=== PATIENT | female | born 1955 | race Caucasian/White ===

== ENCOUNTER → 2016-11-28 | Outpatient (REF) | payer OTHER ==
[2016-11-28 11:26] LABS: MEAN CORPUSCULAR HEMOGLOBIN 31.5 pg (27.0-33.0); MEAN CORPUSCULAR HGB CONC 33.3 g/dl (32.0-36.5); MEAN CORPUSCULAR VOLUME 94.7 fl (80.0-96.0); RED CELL DISTRIBUTION WIDTH 12.3 % (11.5-14.5)
[2016-11-28 11:27] LABS: ALBUMIN 4.3 GM/DL (3.2-5.2); ALBUMIN/GLOBULIN RATIO 1.65 (1.00-1.93); ALKALINE PHOSPHATASE 76 U/L (45-117); ALT/SGPT 19 U/L (12-78); ANION GAP 7 MEQ/L (8-16); AST/SGOT 15 U/L (15-37); BILIRUBIN,TOTAL 0.7 MG/DL (0.2-1.0); BLOOD UREA NITROGEN 18 MG/DL (7-18); CALCIUM LEVEL 9.5 MG/DL (8.8-10.2); CARBON DIOXIDE LEVEL 29 MEQ/L (21-32); CHLORIDE LEVEL 107 MEQ/L (98-107); CHOLESTEROL LEVEL 188 MG/DL (<200); GLOMERULAR FILTRATION RATE > 60.0 (>45); GLUCOSE, FASTING 101 MG/DL (80-110); POTASSIUM SERUM 4.5 MEQ/L (3.5-5.1); SODIUM LEVEL 143 MEQ/L (136-145); TOTAL PROTEIN 6.9 GM/DL (6.4-8.2); TRIGLYCERIDES LEVEL 55 MG/DL (<150)
== END ==
LOC: M SFHCPLAZ 09:15
PROVIDERS: ATTEND Internal Medicine
DX: Z00.00 Encounter for general adult medical examination without abnormal findings (principal); D68.51 Activated protein C resistance; D13.4 Benign neoplasm of liver

== ENCOUNTER → 2016-12-06 | Outpatient (CLI) | payer OTHER ==
--- NOTE | 2016-12-06 09:32 | REP ---
Right upper quadrant sonography: History: Benign hepatic lesion. Compared to CT study abdomen October 08, 2011. Sonographic findings: The gallbladder is surgically absent. The liver is not enlarged. No pancreatic abnormality is observed. High in the dome of the liver, today's sonography shows a 0.6 x 0.5 x 0.6 cm hyperechoic nodule consistent with a hemangioma. This is visible in retrospect on the 2010 prior study as a low-density area and is unchanged in size in any event. There is a very subtle isoechoic area in the medial aspect of the left lobe posteriorly measuring 2.8 x 3.7 x 3.1 cm. This is felt to correspond with the hypervascular mass-like lesions seen adjacent to the falciform ligament in the left lobe of the liver on CT study from 2010. It is difficult to exactly compare dimensions from one modality to the other. However, this would appear to have enlarged slightly since the 2010 study. It is not very conspicuous by ultrasound and repeat CT scanning with contrast would likely give a more accurate depiction of any change. No other liver mass lesion is seen. There is no evidence of ascites or right renal abnormality. The right kidney measures 10.8 x 6.2 x 4.8 cm. Impression: Subtle 3.7 x 3.1 x 2.8 cm isoechoic area in the medial aspect of the left lobe not very well displayed by ultrasound. This appears to have enlarged slightly since the prior CT study in 2010. There is also a 0.6 cm presumed hemangioma in the right lobe of the liver also stable since 2010 in size. Signed by Dequan Walker MD 12/06/2016 12:23 P
== END ==
LOC: M RAD 08:12
PROVIDERS: ATTEND Internal Medicine
DX: D13.4 Benign neoplasm of liver (principal)

== ENCOUNTER → 2017-05-21 | Outpatient (CLI) | payer OTHER ==
--- NOTE | 2017-05-21 10:04 | REPMRS ---
Patient History The patient states she had a clinical breast exam in 04/2017. Patient is postmenopausal. Family history of breast cancer in maternal grandmother and colorectal cancer in paternal uncle. Digital Woman Screen Mammo: May 21, 2017 - Exam #: [id number] Bilateral CC and MLO view(s) were taken. Technologist: Silva Tamez, Technologist Prior study comparison: May 17, 2016, digital woman screen mammo performed at [facility] to [facility]. May 16, 2015, digital woman screen mammo performed at [facility] to [facility]. FINDINGS: There are scattered fibroglandular densities. There has been no change in the appearance of the mammogram from the prior studies. There is a mild amount of residual fibroglandular tissue which is fairly symmetric. There is no interval development of dominant mass, architectural distortion, or clustered microcalcification suggestive of malignancy. ASSESSMENT: BI-RADS/ACR category 1 mammogram. Negative. Recommendation Routine screening mammogram in 1 year (for women over age 40). This mammogram was interpreted with the aid of an FDA-approved computer-aided dectection system. Electronically Signed By: Kali Roberts MD 05/21/17 [id number]
== END ==
LOC: M WHC 08:41
PROVIDERS: ATTEND Nurse Practitioner Women's Health
DX: Z12.31 Encounter for screening mammogram for malignant neoplasm of breast (principal); Z78.0 Asymptomatic menopausal state; Z80.3 Family history of malignant neoplasm of breast

== ENCOUNTER → 2017-05-21 | Outpatient (REF) | payer OTHER | LOC: M SFHCWAGY 09:01 | PROVIDERS: ATTEND Nurse Practitioner Women's Health | DX: Z12.4 Encounter for screening for malignant neoplasm of cervix (principal) ==

== ENCOUNTER → 2017-11-28 | Outpatient (REF) | payer OTHER ==
[2017-11-28 15:59] LABS: HEMATOCRIT 42.6 % (36.0-47.0); HEMOGLOBIN 13.7 g/dl (12.0-16.0); MEAN CORPUSCULAR HEMOGLOBIN 31.5 pg (27.0-33.0); MEAN CORPUSCULAR HGB CONC 32.2 g/dl (32.0-36.5); MEAN CORPUSCULAR VOLUME 97.9 fl (80.0-96.0); PLATELET COUNT, AUTOMATED 268 10^3/uL (150-450); RED BLOOD COUNT 4.35 10^6/uL (4.00-5.40); RED CELL DISTRIBUTION WIDTH 12.5 % (11.5-14.5); WHITE BLOOD COUNT 4.3 10^3/uL (4.0-10.0)
[2017-11-28 16:03] LABS: ALBUMIN 4.1 GM/DL (3.2-5.2); ALBUMIN/GLOBULIN RATIO 1.46 (1.00-1.93); ALKALINE PHOSPHATASE 87 U/L (45-117); ALT/SGPT 17 U/L (12-78); ANION GAP 4 MEQ/L (8-16); AST/SGOT 14 U/L (7-37); BILIRUBIN,TOTAL 0.4 MG/DL (0.2-1.0); BLOOD UREA NITROGEN 18 MG/DL (7-18); CALCIUM LEVEL 8.9 MG/DL (8.8-10.2); CARBON DIOXIDE LEVEL 29 MEQ/L (21-32); CHLORIDE LEVEL 107 MEQ/L (98-107); CREATININE FOR GFR 0.76 MG/DL (0.55-1.30); GLOMERULAR FILTRATION RATE > 60.0 (>45); GLUCOSE, FASTING 96 MG/DL (70-100); POTASSIUM SERUM 4.7 MEQ/L (3.5-5.1); SODIUM LEVEL 140 MEQ/L (136-145); TOTAL PROTEIN 6.9 GM/DL (6.4-8.2)
== END ==
LOC: M LABDRAW1 10:46
DX: Z00.00 Encounter for general adult medical examination without abnormal findings (principal); D13.4 Benign neoplasm of liver

== ENCOUNTER → 2018-05-22 | Outpatient (CLI) | payer BC | LOC: M WHC 08:38 | DX: Z12.31 Encounter for screening mammogram for malignant neoplasm of breast (principal) | CPT/HCPCS: G0123 ==

== ENCOUNTER → 2018-05-22 | Outpatient (REF) | payer BC | LOC: M SFHCWAGY 09:06 | DX: Z12.4 Encounter for screening for malignant neoplasm of cervix (principal) ==

== ENCOUNTER → 2019-05-25 | Outpatient (CLI) | payer MEDICARE ==
--- NOTE | 2019-05-25 12:40 | REP ---
BILATERAL SCREENING DIGITAL MAMMOGRAM WITH 3D TOMOSYNTHESIS: There are no palpable abnormalities or other breast complaints. The the patient states she had a clinical breast examination April/2019. The the patient states she performs self-breast examinations 12 times per year. The Tyrer-Cuzick Score is: 11.0% . Comparison is 01/19/2014. There are scattered areas of fibroglandular density. There is no dominant mass, micro calcific cluster or architectural distortion that would indicate malignancy. There are no additional findings on 3D tomosynthesiss. There is no change from the prior study. Impression: BIRADS/ACR category 1 mammogram. Negative. Recommendation: Routine annual screening mammography. This mammogram was interpreted with the aid of a FDA approved computer-aided detection system. A. Negative mammogram reports should not delay biopsy if a dominant or clinically suspicious mass is present. B. Not all breast cancers are identified by mammography or tomosynthesis. C. Adenosis and dense breasts may obscure an underlying neoplasm. Patient letter M1. Electronically Signed by Kali Eckert MD 05/25/2019 12:31 P
== END ==
LOC: M WHC 11:05
PROVIDERS: ATTEND Nurse Practitioner Women's Health
DX: Z12.31 Encounter for screening mammogram for malignant neoplasm of breast (principal); Z80.3 Family history of malignant neoplasm of breast

== ENCOUNTER → 2020-05-26 | Outpatient (CLI) | payer MEDICARE ==
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
--- NOTE | 2020-06-28 12:41 | DEXA ---
AP SPINE L2 - L4 1.143 -0.4 1.2 LT FEMUR TOTAL 1.011 0.0 1.3 LT NECK 1.045 0.0 1.6 RT FEMUR TOTAL 1.953 -0.4 0.8 RT NECK 1.949 -0.6 0.9 TOTAL BODY TOTAL OTHER COMMENTS: Normal Bone Densitometry of the spine and hips. The density of the spine has decreased 7.4% since the initial exam on 10/08/2008. The decreased 4.3% since the most recent exam on 11/10/2012. The density of the left hip has decreased 9.0% since the initial exam on 10/08/2008. The density of the left hip has decreased 5.2% since the most recent exam on 11/10/2012. The density of the right hip has decreased 9.8% since the initial exam on 10/08/2008. The density of the right hip has decreased 3.2% since the most recent exam on 11/10/2012. FOLLOW-UP: Recommendation for the next bone density exam: 5 years. [place]
== END ==
LOC: M WHC 09:45
PROVIDERS: ATTEND Nurse Practitioner Women's Health
DX: Z12.31 Encounter for screening mammogram for malignant neoplasm of breast (principal); Z78.0 Asymptomatic menopausal state

== ENCOUNTER → 2021-07-11 | Outpatient (CLI) | payer MEDICARE ==
--- NOTE | 2021-07-11 12:37 | REPMRS ---
Patient History The patient states she had a clinical breast exam in June 2021. Family history of breast cancer in maternal grandmother, colorectal cancer in paternal uncle, breast cancer at age 83 in maternal aunt, breast cancer at age 48 in maternal cousin. Patient states no breast complaints today. Patient has signed MRS History Sheet. Digital Woman Screen Mammo: July 11, 2021 - Exam #: [id number] Bilateral CC and MLO view(s) were taken. Technologist: Delia Hightower, Technologist Prior study comparison: May 26, 2020, bilateral digital woman screen mammo performed at [facility]. May 25, 2019, bilateral digital woman screen mammo performed at [facility]. FINDINGS: There are scattered fibroglandular densities. Screening. Digital screening (2D) mammography was performed bilaterally in the CC and MLO projections. Additionally, breast tomosynthesis (3D mammography) was performed bilaterally in the CC and MLO projections. Todays exam was compared to the prior exam/exams. By history, the patient has no complaints of a palpable breast abnormality or other significant breast complaints. The breasts are unchanged in size and shape. There are no burak-soft tissue densities or spiculated masses. There is no internal architectural distortion. Once again, stable benign appearing calcifications are seen.There are no suspicious burak-calcific clusters. Skin thickening or nipple retraction is not present. IMPRESSION: BI-RADS Category 2- Benign Findings. There is no evidence of malignant alteration of the breasts. Followup examination recommended in one year. The Volpara volumetric breast density category is B, there are scattered areas of fibroglandular densities. This mammogram was read with the assistance of [facility],an FDA approved computer aided detection system for mammography. The lifetime Tyrer-Cuzick score is 9.9 % Negative x-ray reports should not delay surgical consultation if a dominant or clinically suspicious mass is present. Not all breast cancers can be identified by mammography. Therefore, we recommend that you continue to perform regular breast self-examination and physical examination and then promptly contact your physician of any concerns or changes. Adenosis and dense breasts may obscure an underlying neoplasm. Assessment: BI-RADS/ACR category 2 mammogram. Benign Findings. Recommendation Routine screening mammogram of both breasts in 1 year. Electronically Signed By: Atif Robles, 07/11/21 [id number]
== END ==
LOC: M WHC 11:12
PROVIDERS: ATTEND Nurse Practitioner Women's Health
DX: Z01.419 Encounter for gynecological examination (general) (routine) without abnormal findings (principal); Z12.31 Encounter for screening mammogram for malignant neoplasm of breast; Z80.3 Family history of malignant neoplasm of breast

== ENCOUNTER → 2022-08-31 | Outpatient (CLI) | payer MEDICARE | LOC: M WHC 11:11 | PROVIDERS: ATTEND Nurse Practitioner Family | DX: Z12.31 Encounter for screening mammogram for malignant neoplasm of breast (principal) ==

== ENCOUNTER → 2023-09-03 | Outpatient (CLI) | payer MEDICARE | LOC: M WHC 10:17 | PROVIDERS: ATTEND Family Medicine | DX: Z12.31 Encounter for screening mammogram for malignant neoplasm of breast (principal) ==

== ENCOUNTER → 2025-01-28 | Outpatient (CLI) | payer MEDICARE | LOC: M WHC 11:30 | PROVIDERS: ATTEND Obstetrics & Gynecology | DX: R92.323 Mammographic fibroglandular density, bilateral breasts (principal); Z12.31 Encounter for screening mammogram for malignant neoplasm of breast; Z13.820 Encounter for screening for osteoporosis ==